=== PATIENT | female | born 1945 | race Caucasian/White ===

== ENCOUNTER 2020-04-25 11:48 | Observation (INO) ==
[2020-04-25] MEDS ORDERED: Ondansetron 4 MG/2 ML VIAL IVP PRN (14:04)
[2020-04-25] MEDS ORDERED: D5% in Water 1,000 ML IVC PRN (14:11)
[2020-04-25] MEDS ORDERED: *HR* Dextrose 50 % in Water (Vial) 50 ML VIAL IVP PRN (14:11)
[2020-04-25] MEDS ORDERED: Dextrose Gel 15 GM/37.5 ML TUBE PO PRN ×2 (14:11)
[2020-04-25 15:17] LABS: Lactate Dehydrogenase 164 Units/L (140-271)
[2020-04-25 15:36] LABS: Ferritin 344 ng/mL (10-120)
[2020-04-25 17:21] LABS: VBG HCO3 23 mEq/L (21-27); VBG PCO2 41 mmHg (41-51); VBG PH 7.35 pH Units (7.32-7.42); VBG PO2 140 mmHg (25-50)
[2020-04-25] MEDS: Insulin LISPRO 300 UNITS/3 ML VIAL SQ SCH ×2 (18:38→20:05)
[2020-04-25] MEDS: *HR* Heparin 5,000 UNIT/ML VIAL SQ SCH (21:44)
[2020-04-25] MEDS: Acetaminophen 325 MG TABLET PO PRN (23:47)
[2020-04-26 01:06] LABS: Hematocrit 32.9 % (35.3-44.9); Mean Corpuscular HGB Conc 30.4 g/dL (31.6-35.5); Mean Corpuscular Hemoglobin 27.5 pg (28.0-33.3); Mean Corpuscular Volume 90.4 fL (83.0-100.0); Platelet Count 371 K/mcL (140-400); Red Blood Count 3.64 M/mcL (3.82-4.97); Red Cell Distribution Width 12.8 % (11.5-14.5); White Blood Count 8.9 K/mcL (4.3-11.1)
[2020-04-26 01:22] LABS: Chol/HDL Ratio 6.2 (0-4.9)
[2020-04-26 01:23] LABS: Calcium 9.1 mg/dL (8.6-10.3); Potassium 4.2 mEq/L (3.5-5.1)
[2020-04-26] MEDS: *HR* Heparin 5,000 UNIT/ML VIAL SQ SCH ×3 (05:16→21:50)
[2020-04-26] MEDS: Insulin LISPRO 300 UNITS/3 ML VIAL SQ SCH ×4 (07:53→19:38)
[2020-04-26] MEDS: Aspirin 81 MG TAB.CHEW PO SCH (07:59)
[2020-04-26] MEDS ORDERED: Azithromycin 500 MG in 0.9 % Sodium Chloride 250 ML IVPB SCH (11:00)
[2020-04-26] MEDS ORDERED: cefTRIAXone 2,000 MG in 0.9 % Sodium Chloride Mini Bag 100 ML IVP SCH (12:00)
[2020-04-26 15:58] LABS: Estimated Average Glucose 203 mg/dl
[2020-04-27 01:17] LABS: Hematocrit 35.5 % (35.3-44.9); Hemoglobin 10.5 g/dL (11.5-15.4); Mean Corpuscular HGB Conc 29.6 g/dL (31.6-35.5); Mean Corpuscular Volume 91.3 fL (83.0-100.0); Mean Platelet Volume 8.9 fL (9.4-12.4); Platelet Count 334 K/mcL (140-400); Red Blood Count 3.89 M/mcL (3.82-4.97); Red Cell Distribution Width 13.1 % (11.5-14.5)
[2020-04-27 01:37] LABS: Calcium 9.2 mg/dL (8.6-10.3); Potassium 3.9 mEq/L (3.5-5.1)
[2020-04-27] MEDS: *HR* Heparin 5,000 UNIT/ML VIAL SQ SCH ×3 (05:06→21:41)
[2020-04-27] MEDS: Insulin LISPRO 300 UNITS/3 ML VIAL SQ SCH ×4 (07:37→21:41)
[2020-04-27] MEDS: Aspirin 81 MG TAB.CHEW PO SCH (08:51)
[2020-04-27] MEDS: lisinopriL 20 MG TABLET PO SCH (08:51)
[2020-04-27] MEDS: polyethylene glycoL 3350 17 GM POWD.PACK PO PRN (22:34)
[2020-04-28 02:35] LABS: Basophils % 0.5 %; Eosinophils # 0.6 K/mcL (0.0-0.6); Eosinophils % 7.2 %; Hematocrit 35.3 % (35.3-44.9); Hemoglobin 10.8 g/dL (11.5-15.4); Immature Granulocytes % 0.7 % (0-4); Lymphocytes % 23.9 %; Mean Corpuscular HGB Conc 30.6 g/dL (31.6-35.5); Mean Corpuscular Hemoglobin 26.9 pg (28.0-33.3); Mean Corpuscular Volume 87.8 fL (83.0-100.0); Mean Platelet Volume 9.2 fL (9.4-12.4); Monocytes # 0.6 K/mcL (0.0-1.3); Monocytes % 7.3 %; Platelet Count 344 K/mcL (140-400); Red Blood Count 4.02 M/mcL (3.82-4.97); Red Cell Distribution Width 12.8 % (11.5-14.5); Segmented Neutrophils % 60.4 %; White Blood Count 8.2 K/mcL (4.3-11.1)
[2020-04-28 02:58] LABS: Calcium 9.2 mg/dL (8.6-10.3); Potassium 3.9 mEq/L (3.5-5.1)
[2020-04-28] MEDS: *HR* Enoxaparin 40 MG/0.4 ML SYRINGE SQ SCH (05:14)
[2020-04-28] MEDS: lisinopriL 20 MG TABLET PO SCH (08:36)
[2020-04-28] MEDS: Aspirin 81 MG TAB.CHEW PO SCH (08:36)
[2020-04-28] MEDS: Insulin LISPRO 300 UNITS/3 ML VIAL SQ SCH ×4 (08:36→20:33)
[2020-04-28] MEDS: polyethylene glycoL 3350 17 GM POWD.PACK PO PRN (20:32)
[2020-04-29] MEDS: *HR* Enoxaparin 40 MG/0.4 ML SYRINGE SQ SCH (05:40)
[2020-04-29] MEDS: Aspirin 81 MG TAB.CHEW PO SCH (08:03)
[2020-04-29] MEDS: Insulin LISPRO 300 UNITS/3 ML VIAL SQ SCH ×4 (08:07→20:07)
[2020-04-29] MEDS: lisinopriL 20 MG TABLET PO SCH (08:11)
[2020-04-30] MEDS: *HR* Enoxaparin 40 MG/0.4 ML SYRINGE SQ SCH (05:08)
[2020-04-30] MEDS: lisinopriL 20 MG TABLET PO SCH (08:27)
[2020-04-30] MEDS: Aspirin 81 MG TAB.CHEW PO SCH (08:27)
[2020-04-30] MEDS: Insulin LISPRO 300 UNITS/3 ML VIAL SQ SCH ×4 (08:28→20:18)
[2020-04-30] MEDS ORDERED: Colchicine 0.6 MG TABLET PO ONE (09:44)
[2020-04-30] MEDS: Acetaminophen 325 MG TABLET PO PRN (10:09)
[2020-04-30] MEDS: Colchicine 0.6 MG TABLET PO SCH (12:24)
[2020-05-01] MEDS: *HR* Enoxaparin 40 MG/0.4 ML SYRINGE SQ SCH (05:15)
[2020-05-01] MEDS: Aspirin 81 MG TAB.CHEW PO SCH (08:55)
[2020-05-01] MEDS: Colchicine 0.6 MG TABLET PO SCH (08:55)
[2020-05-01] MEDS: lisinopriL 20 MG TABLET PO SCH (08:55)
[2020-05-01] MEDS: Insulin LISPRO 300 UNITS/3 ML VIAL SQ SCH ×4 (08:57→19:51)
[2020-05-01] MEDS: polyethylene glycoL 3350 17 GM POWD.PACK PO PRN (11:03)
[2020-05-02] MEDS: *HR* Enoxaparin 40 MG/0.4 ML SYRINGE SQ SCH (05:18)
[2020-05-02] MEDS: Colchicine 0.6 MG TABLET PO SCH (07:43)
[2020-05-02] MEDS: lisinopriL 20 MG TABLET PO SCH (07:43)
[2020-05-02] MEDS: Aspirin 81 MG TAB.CHEW PO SCH (07:43)
[2020-05-02] MEDS: Insulin LISPRO 300 UNITS/3 ML VIAL SQ SCH ×2 (07:44→12:28)
[2020-05-02 11:57] VITALS: BP 117/80
== END 2020-05-02 17:44 ==
LOC: 2NENU → SUATTDRO 13:04
PROVIDERS: ADMIT Student in an Organized Health Care Education/Training Program; ATTEND Internal Medicine

== ENCOUNTER 2020-05-31 01:24 | Inpatient (IN) ==
[2020-05-31] MEDS ORDERED: *HR* Heparin 5,000 UNIT/ML VIAL IVP ONE (03:23)
[2020-05-31] MEDS ORDERED: *HR* Heparin 5,000 UNIT/ML VIAL IVP PRN ×2 (03:23)
[2020-05-31] MEDS ORDERED: Naloxone 0.4 MG/ML INJ IVP PRN (04:01)
[2020-05-31] MEDS ORDERED: D5% in Water 1,000 ML IVC PRN (04:26)
[2020-05-31] MEDS ORDERED: *HR* Dextrose 50 % in Water (Vial) 50 ML VIAL IVP PRN (04:26)
[2020-05-31] MEDS ORDERED: Dextrose Gel 15 GM/37.5 ML TUBE PO PRN ×2 (04:26)
[2020-05-31] MEDS ORDERED: Perflutren Lipid Microsphere 1.3 ML in 0.9 % Sodium Chloride 8.7 ML IVP PRN (04:30)
[2020-05-31] MEDS: Heparin 25,000UNIT/250ML 1/2NS 25,000 UNIT/250 ML IV.SOLN IVC SCH (04:45)
[2020-05-31 05:01] LABS: Heparin anti-factor XA UFH 0.04 IU/mL (0.30-0.70)
[2020-05-31 05:51] LABS: Hematocrit 37.2 % (35.3-44.9); Hemoglobin 11.3 g/dL (11.5-15.4); Mean Corpuscular HGB Conc 30.4 g/dL (31.6-35.5); Mean Corpuscular Hemoglobin 27.8 pg (28.0-33.3); Mean Corpuscular Volume 91.4 fL (83.0-100.0); Mean Platelet Volume 9.8 fL (9.4-12.4); Platelet Count 264 K/mcL (140-400); Red Blood Count 4.07 M/mcL (3.82-4.97); Red Cell Distribution Width 15.3 % (11.5-14.5)
[2020-05-31 06:14] LABS: Albumin 3.7 g/dL (3.5-5.7); Albumin/Globulin Ratio 1.3 (1.1-2.2); Bilirubin,Direct 0.1 mg/dL (0.0-0.2); Bilirubin,Indirect 0.3 mg/dL (0.0-1.0); Bilirubin,Total 0.4 mg/dL (0.3-1.0); Globulin 2.8 g/dL (2.4-3.5); Total Protein 6.5 g/dL (6.4-8.9)
[2020-05-31 06:31] LABS: Calcium 9.7 mg/dL (8.6-10.3); Potassium 3.8 mEq/L (3.5-5.1); Troponin I 1.17 ng/mL (< 0.04)
[2020-05-31 07:23] LABS: Estimated Average Glucose 177 mg/dl; Hemoglobin A1C 7.8 %
[2020-05-31] MEDS: Insulin LISPRO 300 UNITS/3 ML VIAL SUBQ SCH ×4 (07:28→16:51)
[2020-05-31] MEDS: Aspirin Enteric Coated 81 MG Tablet PO SCH (08:36)
[2020-05-31] MEDS: gemfibroziL 600 MG TABLET PO SCH ×2 (08:36→18:33)
[2020-05-31] MEDS: lisinopriL 20 MG TABLET PO SCH (08:36)
[2020-05-31] MEDS: Cholecalciferol (D-3) 1,000 UNIT (25MCG) TABLET PO SCH (08:36)
[2020-05-31 09:15] LABS: Hepatitis B Surface Antigen Nonreactive (Nonreactive)
[2020-05-31 09:44] LABS: Hepatitis C Virus Antibody Nonreactive (Nonreactive)
[2020-05-31 09:45] LABS: Hepatitis B Core IgM Nonreactive (Nonreactive)
[2020-05-31 09:47] LABS: Hepatitis A Antibody IgM Nonreactive (Nonreactive)
[2020-05-31] MEDS: 0.9 % Sodium Chloride 1,000 ML IVC SCH (12:25)
[2020-05-31 15:21] LABS: Complement C3 174 mg/dL (87-200)
[2020-06-01] MEDS: polyethylene glycoL 3350 17 GM POWD.PACK PO SCH ×2 (00:31→08:38)
[2020-06-01] MEDS: *HR* Acetylcysteine 20% 600 MG/3 ML ORAL SYRINGE PO SCH ×2 (00:33→23:31)
[2020-06-01] MEDS: 0.9 % Sodium Chloride 1,000 ML IVC SCH ×2 (03:00→23:18)
[2020-06-01] MEDS: Heparin 25,000UNIT/250ML 1/2NS 25,000 UNIT/250 ML IV.SOLN IVC SCH (05:46)
[2020-06-01 05:58] LABS: Protein/Creatinine Ratio,Urine 3.93 mg/mg (0.00-0.20)
[2020-06-01 06:37] LABS: Basophils % 0.3 %; Eosinophils # 0.4 K/mcL (0.0-0.6); Eosinophils % 4.1 %; Hematocrit 34.2 % (35.3-44.9); Hemoglobin 10.1 g/dL (11.5-15.4); Immature Granulocytes % 0.6 % (0-4); Lymphocytes # 1.6 K/mcL (0.6-4.6); Lymphocytes % 18.4 %; Mean Corpuscular HGB Conc 29.5 g/dL (31.6-35.5); Mean Corpuscular Volume 91.4 fL (83.0-100.0); Mean Platelet Volume 10.3 fL (9.4-12.4); Monocytes # 0.4 K/mcL (0.0-1.3); Monocytes % 4.2 %; Neutrophils # 6.4 K/mcL (1.6-8.9); Platelet Count 273 K/mcL (140-400); Red Blood Count 3.74 M/mcL (3.82-4.97); Red Cell Distribution Width 15.5 % (11.5-14.5); Segmented Neutrophils % 72.4 %; White Blood Count 8.8 K/mcL (4.3-11.1)
[2020-06-01 06:40] LABS: INR 1.2; Prothrombin Time 13.9 Seconds (9.4-12.1)
[2020-06-01 06:55] LABS: Calcium 9.3 mg/dL (8.6-10.3); Magnesium 1.8 mg/dL (1.6-2.6); Phosphorous 4.5 mg/dL (2.7-4.5)
[2020-06-01 06:57] LABS: Albumin 3.4 g/dL (3.5-5.7); Albumin/Globulin Ratio 1.2 (1.1-2.2); Bilirubin,Direct 0.1 mg/dL (0.0-0.2); Bilirubin,Indirect 0.2 mg/dL (0.0-1.0); Bilirubin,Total 0.3 mg/dL (0.3-1.0); Globulin 2.8 g/dL (2.4-3.5); Total Protein 6.2 g/dL (6.4-8.9)
[2020-06-01 07:02] LABS: Iron 53 mcg/dL (50-170)
[2020-06-01 07:15] LABS: Ferritin 216 ng/mL (10-120)
[2020-06-01] MEDS: Insulin LISPRO 300 UNITS/3 ML VIAL SUBQ SCH ×3 (07:50→16:01)
[2020-06-01] MEDS: Aspirin Enteric Coated 81 MG Tablet PO SCH (08:38)
[2020-06-01] MEDS: Cholecalciferol (D-3) 1,000 UNIT (25MCG) TABLET PO SCH (08:39)
[2020-06-01] MEDS: gemfibroziL 600 MG TABLET PO SCH ×2 (08:39→16:28)
[2020-06-01 10:01] LABS: % Iron Saturation 25 % (15-50); Transferrin 154 mg/dL (203-362)
[2020-06-01] MEDS ORDERED: Isovue-370 500 ML BOTTLE IVP ONE (17:17)
[2020-06-02 05:44] LABS: Basophils % 0.4 %; Eosinophils # 0.3 K/mcL (0.0-0.6); Eosinophils % 3.6 %; Hematocrit 34.1 % (35.3-44.9); Hemoglobin 10.4 g/dL (11.5-15.4); Immature Granulocytes % 0.4 % (0-4); Lymphocytes # 1.2 K/mcL (0.6-4.6); Mean Corpuscular HGB Conc 30.5 g/dL (31.6-35.5); Mean Corpuscular Hemoglobin 28.4 pg (28.0-33.3); Mean Corpuscular Volume 93.2 fL (83.0-100.0); Mean Platelet Volume 9.9 fL (9.4-12.4); Monocytes # 0.4 K/mcL (0.0-1.3); Monocytes % 4.5 %; Neutrophils # 6.4 K/mcL (1.6-8.9); Platelet Count 281 K/mcL (140-400); Red Blood Count 3.66 M/mcL (3.82-4.97); Red Cell Distribution Width 15.8 % (11.5-14.5); Segmented Neutrophils % 77.1 %; White Blood Count 8.3 K/mcL (4.3-11.1)
[2020-06-02 06:00] LABS: Calcium 9.1 mg/dL (8.6-10.3); Magnesium 1.9 mg/dL (1.6-2.6); Phosphorous 4.9 mg/dL (2.7-4.5); Potassium 4.3 mEq/L (3.5-5.1)
[2020-06-02 06:01] LABS: Albumin 3.2 g/dL (3.5-5.7); Albumin/Globulin Ratio 1.2 (1.1-2.2); Bilirubin,Indirect 0.3 mg/dL (0.0-1.0); Bilirubin,Total 0.3 mg/dL (0.3-1.0); Globulin 2.7 g/dL (2.4-3.5); Total Protein 5.9 g/dL (6.4-8.9)
[2020-06-02] MEDS: Insulin LISPRO 300 UNITS/3 ML VIAL SUBQ SCH ×3 (08:02→16:31)
[2020-06-02] MEDS: polyethylene glycoL 3350 17 GM POWD.PACK PO SCH (08:12)
[2020-06-02] MEDS: gemfibroziL 600 MG TABLET PO SCH ×2 (08:13→16:31)
[2020-06-02] MEDS: Aspirin Enteric Coated 81 MG Tablet PO SCH (08:13)
[2020-06-02] MEDS: Cholecalciferol (D-3) 1,000 UNIT (25MCG) TABLET PO SCH (08:13)
[2020-06-02] MEDS: lisinopriL 20 MG TABLET PO SCH (08:14)
[2020-06-02 11:03] LABS: AFP Tumor Marker Non-Pregnant 1 ng/mL (0-9)
[2020-06-02 12:14] LABS: Lambda Qnt Free Light Chains 32.17 mg/L (5.71-26.30)
[2020-06-02] MEDS: 0.9 % Sodium Chloride 1,000 ML IVC SCH ×2 (13:17→16:47)
[2020-06-02 18:50] LABS: ANA IgG by ELISA NONE DETECTED (None Detected); Kappa Qnt Free Light Chains 92.05 mg/L (3.30-19.40)
[2020-06-02 18:51] LABS: Smooth Muscle Ab Titer IgG <1:20 (<1:20)
[2020-06-03 01:39] LABS: Basophils % 0.3 %; Eosinophils # 0.3 K/mcL (0.0-0.6); Eosinophils % 3.4 %; Hematocrit 35.3 % (35.3-44.9); Hemoglobin 10.6 g/dL (11.5-15.4); Immature Granulocytes % 0.5 % (0-4); Lymphocytes # 1.2 K/mcL (0.6-4.6); Lymphocytes % 12.7 %; Mean Corpuscular Hemoglobin 28.3 pg (28.0-33.3); Mean Corpuscular Volume 94.1 fL (83.0-100.0); Mean Platelet Volume 9.7 fL (9.4-12.4); Monocytes # 0.4 K/mcL (0.0-1.3); Monocytes % 3.8 %; Neutrophils # 7.8 K/mcL (1.6-8.9); Platelet Count 291 K/mcL (140-400); Red Blood Count 3.75 M/mcL (3.82-4.97); Red Cell Distribution Width 15.8 % (11.5-14.5); Segmented Neutrophils % 79.3 %; White Blood Count 9.8 K/mcL (4.3-11.1)
[2020-06-03 01:58] LABS: Albumin 3.2 g/dL (3.5-5.7); Albumin/Globulin Ratio 1.1 (1.1-2.2); Bilirubin,Direct 0.2 mg/dL (0.0-0.2); Bilirubin,Indirect 0.1 mg/dL (0.0-1.0); Bilirubin,Total 0.3 mg/dL (0.3-1.0); Globulin 2.9 g/dL (2.4-3.5); Total Protein 6.1 g/dL (6.4-8.9)
[2020-06-03 02:00] LABS: Potassium 4.5 mEq/L (3.5-5.1)
[2020-06-03] MEDS: 0.9 % Sodium Chloride 1,000 ML IVC SCH ×2 (03:06→16:53)
[2020-06-03 07:45] LABS: F-Actin (sm muscle) Ab IgG 4 Units (0-19)
[2020-06-03] MEDS: Insulin LISPRO 300 UNITS/3 ML VIAL SUBQ SCH ×3 (07:46→16:46)
[2020-06-03] MEDS: Cholecalciferol (D-3) 1,000 UNIT (25MCG) TABLET PO SCH (07:56)
[2020-06-03] MEDS: Aspirin Enteric Coated 81 MG Tablet PO SCH (07:56)
[2020-06-03] MEDS: polyethylene glycoL 3350 17 GM POWD.PACK PO SCH (07:56)
[2020-06-04 02:08] LABS: Basophils % 0.2 %; Eosinophils # 0.4 K/mcL (0.0-0.6); Eosinophils % 3.4 %; Hematocrit 34.9 % (35.3-44.9); Hemoglobin 10.6 g/dL (11.5-15.4); Immature Granulocytes % 0.7 % (0-4); Lymphocytes # 1.4 K/mcL (0.6-4.6); Lymphocytes % 12.9 %; Mean Corpuscular HGB Conc 30.4 g/dL (31.6-35.5); Mean Corpuscular Hemoglobin 27.7 pg (28.0-33.3); Mean Corpuscular Volume 91.1 fL (83.0-100.0); Mean Platelet Volume 9.4 fL (9.4-12.4); Monocytes # 0.3 K/mcL (0.0-1.3); Monocytes % 3.1 %; Neutrophils # 8.6 K/mcL (1.6-8.9); Platelet Count 328 K/mcL (140-400); Red Blood Count 3.83 M/mcL (3.82-4.97); Red Cell Distribution Width 15.9 % (11.5-14.5); Segmented Neutrophils % 79.7 %; White Blood Count 10.7 K/mcL (4.3-11.1)
[2020-06-04 02:29] LABS: Bilirubin,Total 0.3 mg/dL (0.3-1.0); Calcium 8.9 mg/dL (8.6-10.3); Globulin 2.9 g/dL (2.4-3.5); Potassium 4.8 mEq/L (3.5-5.1); Total Protein 5.9 g/dL (6.4-8.9)
[2020-06-04 02:30] LABS: Phosphorous 5.5 mg/dL (2.7-4.5)
[2020-06-04] MEDS: 0.9 % Sodium Chloride 1,000 ML IVC SCH (04:33)
[2020-06-04] MEDS: Insulin LISPRO 300 UNITS/3 ML VIAL SUBQ SCH ×3 (09:50→16:43)
[2020-06-04] MEDS: Cholecalciferol (D-3) 1,000 UNIT (25MCG) TABLET PO SCH (09:52)
[2020-06-04] MEDS: Aspirin Enteric Coated 81 MG Tablet PO SCH (09:52)
[2020-06-04] MEDS: polyethylene glycoL 3350 17 GM POWD.PACK PO SCH (09:52)
[2020-06-04 10:28] LABS: Serine Protease-3 Antibody 0 AU/mL (0-19)
[2020-06-04 16:43] LABS: INR 1.2; Prothrombin Time 14.3 Seconds (9.4-12.1)
[2020-06-04] MEDS: Ondansetron ODT 4 MG TAB.RAPDIS SL PRN (21:48)
[2020-06-05 05:03] LABS: Basophils % 0.4 %; Eosinophils # 0.4 K/mcL (0.0-0.6); Eosinophils % 3.5 %; Hematocrit 36.4 % (35.3-44.9); Hemoglobin 11.3 g/dL (11.5-15.4); Immature Granulocytes % 1.3 % (0-4); Lymphocytes # 1.5 K/mcL (0.6-4.6); Lymphocytes % 14.9 %; Mean Corpuscular Hemoglobin 28.1 pg (28.0-33.3); Mean Corpuscular Volume 90.5 fL (83.0-100.0); Mean Platelet Volume 9.6 fL (9.4-12.4); Monocytes # 0.4 K/mcL (0.0-1.3); Monocytes % 3.6 %; Neutrophils # 7.9 K/mcL (1.6-8.9); Platelet Count 360 K/mcL (140-400); Red Blood Count 4.02 M/mcL (3.82-4.97); Red Cell Distribution Width 15.9 % (11.5-14.5); Segmented Neutrophils % 76.3 %; White Blood Count 10.3 K/mcL (4.3-11.1)
[2020-06-05 05:21] LABS: Albumin 2.9 g/dL (3.5-5.7); Bilirubin,Total 0.3 mg/dL (0.3-1.0); Globulin 2.8 g/dL (2.4-3.5); Potassium 4.8 mEq/L (3.5-5.1); Total Protein 5.7 g/dL (6.4-8.9)
[2020-06-05] MEDS: Insulin LISPRO 300 UNITS/3 ML VIAL SUBQ SCH ×3 (08:25→17:21)
[2020-06-05] MEDS: Aspirin Enteric Coated 81 MG Tablet PO SCH (08:27)
[2020-06-05] MEDS: Cholecalciferol (D-3) 1,000 UNIT (25MCG) TABLET PO SCH (08:27)
[2020-06-05] MEDS: polyethylene glycoL 3350 17 GM POWD.PACK PO SCH (08:28)
[2020-06-05] MEDS ORDERED: Bisacodyl 10 MG RECTAL SUPPOSITORY RC ONE (12:14)
[2020-06-05 15:16] LABS: CK-BB (CK isoenzymes) 0 % (0-0); CK-MB (CK isoenzymes) 0 % (0-4); CK-MM (CK-isoenzymes) 100 % (96-100)
[2020-06-05 15:17] LABS: CK Total (Ck Isoenzymes) 39006 U/L (20-180)
[2020-06-06 03:03] LABS: Basophils # 0.1 K/mcL (0.0-0.2); Basophils % 0.5 %; Eosinophils # 0.4 K/mcL (0.0-0.6); Eosinophils % 3.6 %; Immature Granulocytes % 1.9 % (0-4); Lymphocytes # 1.5 K/mcL (0.6-4.6); Lymphocytes % 15.4 %; Mean Corpuscular HGB Conc 30.6 g/dL (31.6-35.5); Mean Corpuscular Hemoglobin 27.7 pg (28.0-33.3); Mean Corpuscular Volume 90.7 fL (83.0-100.0); Mean Platelet Volume 9.2 fL (9.4-12.4); Monocytes # 0.4 K/mcL (0.0-1.3); Monocytes % 4.3 %; Neutrophils # 7.2 K/mcL (1.6-8.9); Platelet Count 377 K/mcL (140-400); Red Blood Count 3.97 M/mcL (3.82-4.97); Red Cell Distribution Width 15.9 % (11.5-14.5); Segmented Neutrophils % 74.3 %; White Blood Count 9.6 K/mcL (4.3-11.1)
[2020-06-06 03:23] LABS: Albumin 2.9 g/dL (3.5-5.7); Bilirubin,Total 0.4 mg/dL (0.3-1.0); Calcium 9.1 mg/dL (8.6-10.3); Globulin 2.8 g/dL (2.4-3.5); Potassium 4.8 mEq/L (3.5-5.1); Total Protein 5.7 g/dL (6.4-8.9)
[2020-06-06] MEDS: polyethylene glycoL 3350 17 GM POWD.PACK PO SCH (07:52)
[2020-06-06] MEDS: Insulin LISPRO 300 UNITS/3 ML VIAL SUBQ SCH ×3 (07:53→18:42)
[2020-06-06] MEDS: Cholecalciferol (D-3) 1,000 UNIT (25MCG) TABLET PO SCH (07:53)
[2020-06-06] MEDS: Aspirin Enteric Coated 81 MG Tablet PO SCH (07:53)
[2020-06-06 10:15] LABS: Tissue Transglutaminase IgA <2 U/mL (0-3); Tissue Transglutaminase IgG <2 U/mL (0-5)
[2020-06-06] MEDS: Ondansetron ODT 4 MG TAB.RAPDIS SL PRN (16:28)
[2020-06-06] MEDS ORDERED: 0.9 % Sodium Chloride 500 ML IVC ONE (22:50)
[2020-06-06 23:59] LABS: Troponin I 0.08 ng/mL (< 0.04)
[2020-06-07 05:33] LABS: Basophils # 0.1 K/mcL (0.0-0.2); Basophils % 0.8 %; Eosinophils # 0.3 K/mcL (0.0-0.6); Eosinophils % 2.8 %; Hematocrit 36.4 % (35.3-44.9); Hemoglobin 11.1 g/dL (11.5-15.4); Immature Granulocytes % 2.4 % (0-4); Lymphocytes % 21.6 %; Mean Corpuscular HGB Conc 30.5 g/dL (31.6-35.5); Mean Corpuscular Hemoglobin 28.2 pg (28.0-33.3); Mean Corpuscular Volume 92.4 fL (83.0-100.0); Mean Platelet Volume 9.4 fL (9.4-12.4); Monocytes # 0.4 K/mcL (0.0-1.3); Monocytes % 4.5 %; Neutrophils # 6.3 K/mcL (1.6-8.9); Platelet Count 414 K/mcL (140-400); Red Blood Count 3.94 M/mcL (3.82-4.97); Red Cell Distribution Width 16.1 % (11.5-14.5); Segmented Neutrophils % 67.9 %; White Blood Count 9.2 K/mcL (4.3-11.1)
[2020-06-07 05:49] LABS: Albumin 2.9 g/dL (3.5-5.7); Albumin/Globulin Ratio 1.1 (1.1-2.2); Bilirubin,Total 0.4 mg/dL (0.3-1.0); Calcium 9.3 mg/dL (8.6-10.3); Globulin 2.6 g/dL (2.4-3.5); Potassium 4.7 mEq/L (3.5-5.1); Total Protein 5.5 g/dL (6.4-8.9)
[2020-06-07] MEDS: Insulin LISPRO 300 UNITS/3 ML VIAL SUBQ SCH ×3 (07:59→17:02)
[2020-06-07] MEDS: Aspirin Enteric Coated 81 MG Tablet PO SCH (07:59)
[2020-06-07] MEDS: Cholecalciferol (D-3) 1,000 UNIT (25MCG) TABLET PO SCH (07:59)
[2020-06-07] MEDS: polyethylene glycoL 3350 17 GM POWD.PACK PO SCH (07:59)
[2020-06-07] MEDS ORDERED: Aspirin Enteric Coated 325 MG Tablet PO ONE (13:19)
[2020-06-07] MEDS ORDERED: Aspirin 81 MG TAB.CHEW PO ONE (13:30)
[2020-06-08 01:34] LABS: Basophils # 0.1 K/mcL (0.0-0.2); Basophils % 0.6 %; Eosinophils # 0.4 K/mcL (0.0-0.6); Eosinophils % 5.2 %; Hematocrit 36.7 % (35.3-44.9); Hemoglobin 10.9 g/dL (11.5-15.4); Immature Granulocytes % 3.1 % (0-4); Lymphocytes # 1.8 K/mcL (0.6-4.6); Lymphocytes % 23.4 %; Mean Corpuscular HGB Conc 29.7 g/dL (31.6-35.5); Mean Corpuscular Hemoglobin 27.3 pg (28.0-33.3); Mean Corpuscular Volume 91.8 fL (83.0-100.0); Mean Platelet Volume 9.4 fL (9.4-12.4); Monocytes # 0.5 K/mcL (0.0-1.3); Monocytes % 5.7 %; Neutrophils # 4.9 K/mcL (1.6-8.9); Platelet Count 395 K/mcL (140-400); White Blood Count 7.9 K/mcL (4.3-11.1)
[2020-06-08 01:58] LABS: Albumin 2.9 g/dL (3.5-5.7); Albumin/Globulin Ratio 1.1 (1.1-2.2); Bilirubin,Total 0.4 mg/dL (0.3-1.0); Calcium 9.2 mg/dL (8.6-10.3); Globulin 2.6 g/dL (2.4-3.5); Potassium 4.2 mEq/L (3.5-5.1); Total Protein 5.5 g/dL (6.4-8.9)
[2020-06-08] MEDS: Aspirin Enteric Coated 81 MG Tablet PO SCH (07:54)
[2020-06-08] MEDS: Cholecalciferol (D-3) 1,000 UNIT (25MCG) TABLET PO SCH (07:54)
[2020-06-08] MEDS: polyethylene glycoL 3350 17 GM POWD.PACK PO SCH (07:54)
[2020-06-08] MEDS: Insulin LISPRO 300 UNITS/3 ML VIAL SUBQ SCH ×3 (07:58→16:51)
[2020-06-08] MEDS ORDERED: Acetaminophen 325 MG TABLET PO PRN (14:51)
[2020-06-08 16:04] VITALS: BP 98/59
== END 2020-06-08 17:42 | DRG 682 ==
LOC: 3BNU → SUATTDRO 03:05 → 2ANU 06-02 14:26 → SUATTDRO 06-02 16:52
PROVIDERS: ADMIT Internal Medicine; ATTEND Internal Medicine

== ENCOUNTER 2020-06-22 06:22 | Observation (INO) ==
[2020-06-22] MEDS ORDERED: *HR* Heparin 5,000 UNIT/ML VIAL IVP ONE (09:01)
[2020-06-22] MEDS ORDERED: *HR* Heparin 5,000 UNIT/ML VIAL IVP PRN ×2 (09:01)
[2020-06-22] MEDS ORDERED: Heparin 25,000UNIT/250ML 1/2NS 25,000 UNIT/250 ML IV.SOLN IVC SCH (09:15)
[2020-06-22] MEDS ORDERED: Naloxone 0.4 MG/ML INJ IVP PRN (09:27)
[2020-06-22] MEDS ORDERED: Ondansetron 4 MG/2 ML VIAL IVP PRN (09:27)
[2020-06-22] MEDS ORDERED: Acetaminophen 325 MG TABLET PO PRN (09:27)
[2020-06-22] MEDS ORDERED: *HR* Dextrose 50 % in Water (Vial) 50 ML VIAL IVP PRN (09:28)
[2020-06-22] MEDS ORDERED: Dextrose Gel 15 GM/37.5 ML TUBE PO PRN ×2 (09:28)
[2020-06-22] MEDS ORDERED: D5% in Water 1,000 ML IVC PRN (09:28)
[2020-06-22 09:48] LABS: Hematocrit 34.7 % (35.3-44.9); Hemoglobin 10.6 g/dL (11.5-15.4); Mean Corpuscular HGB Conc 30.5 g/dL (31.6-35.5); Mean Corpuscular Hemoglobin 28.3 pg (28.0-33.3); Mean Corpuscular Volume 92.5 fL (83.0-100.0); Mean Platelet Volume 9.4 fL (9.4-12.4); Platelet Count 207 K/mcL (140-400); Red Blood Count 3.75 M/mcL (3.82-4.97); Red Cell Distribution Width 15.5 % (11.5-14.5); White Blood Count 7.3 K/mcL (4.3-11.1)
[2020-06-22 09:50] LABS: Heparin anti-factor XA UFH < 0.04 IU/mL (0.30-0.70)
[2020-06-22 09:51] LABS: INR 1.2; Prothrombin Time 13.6 Seconds (9.4-12.1)
[2020-06-22] MEDS: lisinopriL 10 MG TABLET PO SCH (09:59)
[2020-06-22] MEDS: polyethylene glycoL 3350 17 GM POWD.PACK PO SCH (09:59)
[2020-06-22] MEDS: Aspirin Enteric Coated 81 MG Tablet PO SCH (09:59)
[2020-06-22] MEDS ORDERED: Perflutren Lipid Microsphere 1.3 ML in 0.9 % Sodium Chloride 8.7 ML IVP PRN (11:00)
[2020-06-22] MEDS: Insulin LISPRO 300 UNITS/3 ML VIAL SUBQ SCH ×2 (11:46→16:49)
[2020-06-22] MEDS: Apixaban 5 MG TABLET PO SCH ×2 (11:59→20:49)
[2020-06-22 21:57] LABS: Bilirubin,Urine Negative (Negative); Blood,Urine Trace (Negative); Clarity,Urine Turbid (Clear); Color,Urine Yellow (Yellow); Glucose,Urine (UA) Normal (Normal); Ketones,Urine Negative (Negative); Leukocyte Esterase,Urine Large (Negative); Nitrite,Urine Positive (Negative); Protein,Urine Trace mg/dL (Neg-Trace); Specific Gravity,Urine 1.016 (1.010-1.025); Urobilinogen,Urine Normal (Normal)
[2020-06-23 03:30] LABS: Hematocrit 32.1 % (35.3-44.9); Hemoglobin 9.6 g/dL (11.5-15.4); Mean Corpuscular HGB Conc 29.9 g/dL (31.6-35.5); Mean Corpuscular Hemoglobin 27.4 pg (28.0-33.3); Mean Corpuscular Volume 91.7 fL (83.0-100.0); Mean Platelet Volume 9.2 fL (9.4-12.4); Platelet Count 180 K/mcL (140-400); Red Cell Distribution Width 15.3 % (11.5-14.5); White Blood Count 6.3 K/mcL (4.3-11.1)
[2020-06-23 03:50] LABS: Calcium 8.3 mg/dL (8.6-10.3); Magnesium 1.4 mg/dL (1.6-2.6)
[2020-06-23 03:55] LABS: Troponin I 0.13 ng/mL (< 0.04)
[2020-06-23] MEDS: Apixaban 5 MG TABLET PO SCH ×2 (07:31→20:08)
[2020-06-23] MEDS: Aspirin Enteric Coated 81 MG Tablet PO SCH (07:31)
[2020-06-23] MEDS: polyethylene glycoL 3350 17 GM POWD.PACK PO SCH (07:32)
[2020-06-23] MEDS: Insulin LISPRO 300 UNITS/3 ML VIAL SUBQ SCH ×3 (07:32→17:02)
[2020-06-23] MEDS: lisinopriL 10 MG TABLET PO SCH (07:32)
[2020-06-24 07:03] LABS: Hematocrit 34.1 % (35.3-44.9); Hemoglobin 10.3 g/dL (11.5-15.4); Mean Corpuscular HGB Conc 30.2 g/dL (31.6-35.5); Mean Corpuscular Hemoglobin 27.8 pg (28.0-33.3); Mean Corpuscular Volume 91.9 fL (83.0-100.0); Mean Platelet Volume 9.3 fL (9.4-12.4); Platelet Count 206 K/mcL (140-400); Red Blood Count 3.71 M/mcL (3.82-4.97); Red Cell Distribution Width 15.3 % (11.5-14.5); White Blood Count 7.2 K/mcL (4.3-11.1)
[2020-06-24 07:54] LABS: Calcium 9.1 mg/dL (8.6-10.3); Potassium 3.9 mEq/L (3.5-5.1)
[2020-06-24] MEDS: Insulin LISPRO 300 UNITS/3 ML VIAL SUBQ SCH ×2 (07:59→11:04)
[2020-06-24 10:49] VITALS: BP 130/77
[2020-06-24] MEDS: polyethylene glycoL 3350 17 GM POWD.PACK PO SCH (10:51)
[2020-06-24] MEDS: Apixaban 5 MG TABLET PO SCH (10:51)
[2020-06-24] MEDS: Aspirin Enteric Coated 81 MG Tablet PO SCH (10:51)
[2020-06-24] MEDS: lisinopriL 10 MG TABLET PO SCH (10:52)
[2020-06-25 15:58] LABS: Alpha 2 Globulin (PEP) 1.12 g/dL (0.48-1.05); Beta Globulin (PEP) 0.59 g/dL (0.48-1.10)
[2020-06-25 20:20] LABS: IFE Reflexed NOT DONE
[2020-06-29] MEDS ORDERED: Apixaban 5 MG TABLET PO SCH (09:00)
== END 2020-06-24 15:35 | disposition home health service (06) ==
LOC: CDU → SUATTDRO 09:29 → CDU 06-23 14:45
PROVIDERS: ADMIT Internal Medicine; ATTEND Internal Medicine

== ENCOUNTER 2021-11-22 13:45 | Inpatient (IN) ==
[2021-11-22] MEDS ORDERED: Ondansetron 4 MG/2 ML VIAL IVP PRN (17:14)
[2021-11-22] MEDS ORDERED: *HR* HYDROcodone/Acet 5/325 mg TABLET PO PRN (17:14)
[2021-11-22] MEDS ORDERED: Naloxone 0.4 MG/ML INJ IVP PRN (17:14)
[2021-11-22] MEDS ORDERED: Acetaminophen 325 MG TABLET PO PRN (17:14)
[2021-11-22] MEDS: *HR* OxyCODONE Immed Rel 5 MG TABLET PO PRN (18:01)
[2021-11-22] MEDS ORDERED: Dextrose Gel 15 GM/37.5 ML TUBE PO PRN ×2 (18:40)
[2021-11-22] MEDS ORDERED: D5% in Water 1,000 ML IVC PRN (18:40)
[2021-11-22] MEDS ORDERED: *HR* Dextrose 50 % in Water (Syg) 50 ML SYRINGE IVP PRN (18:40)
[2021-11-22] MEDS: Insulin LISPRO 300 UNITS/3 ML VIAL SUBQ SCH ×2 (21:13→21:14)
[2021-11-23] MEDS: *HR* Heparin 5,000 UNIT/ML VIAL SQ SCH ×2 (06:34→17:59)
[2021-11-23 07:28] LABS: Basophils % 0.5 %; Eosinophils # 0.4 K/mcL (0.0-0.6); Eosinophils % 4.8 %; Hematocrit 30.8 % (35.3-44.9); Immature Granulocytes % 0.4 % (0-4); Lymphocytes % 40.9 %; Mean Corpuscular HGB Conc 29.2 g/dL (31.6-35.5); Mean Corpuscular Hemoglobin 25.2 pg (28.0-33.3); Mean Corpuscular Volume 86.3 fL (83.0-100.0); Mean Platelet Volume 8.5 fL (9.4-12.4); Monocytes # 0.4 K/mcL (0.0-1.3); Neutrophils # 3.6 K/mcL (1.6-8.9); Platelet Count 377 K/mcL (140-400); Red Blood Count 3.57 M/mcL (3.82-4.97); Red Cell Distribution Width 16.2 % (11.5-14.5); Segmented Neutrophils % 48.4 %; White Blood Count 7.3 K/mcL (4.3-11.1)
[2021-11-23 07:36] LABS: Calcium 8.9 mg/dL (8.6-10.3); Magnesium 1.7 mg/dL (1.6-2.6); Potassium 3.7 mEq/L (3.5-5.1)
[2021-11-23] MEDS: Insulin LISPRO 300 UNITS/3 ML VIAL SUBQ SCH ×4 (07:59→21:06)
[2021-11-23 09:03] LABS: Estimated Average Glucose 126 mg/dl
[2021-11-23 09:45] LABS: Thyroid Stimulating Hormone 3.763 mcIU/mL (0.340-5.600)
[2021-11-23] MEDS: *HR* OxyCODONE Immed Rel 5 MG TABLET PO PRN (10:16)
[2021-11-23] MEDS: Gabapentin 100 MG CAPSULE PO SCH ×2 (16:23→21:07)
[2021-11-23] MEDS: methocarbamoL 500 MG TABLET PO SCH ×2 (16:23→21:08)
[2021-11-23] MEDS ORDERED: Vancomycin 1,500 MG/265 ML IV.SOLN IVPB SCH (17:00)
[2021-11-23] MEDS: MetroNIDAZOLE 500 MG/100 ML 500 MG/100 ML BAG IVPB SCH ×2 (17:46→23:33)
[2021-11-24 01:41] LABS: Basophils % 0.3 %; Eosinophils # 0.3 K/mcL (0.0-0.6); Eosinophils % 3.3 %; Hematocrit 29.3 % (35.3-44.9); Hemoglobin 8.6 g/dL (11.5-15.4); Immature Granulocytes % 0.3 % (0-4); Lymphocytes # 3.4 K/mcL (0.6-4.6); Mean Corpuscular HGB Conc 29.4 g/dL (31.6-35.5); Mean Corpuscular Hemoglobin 25.2 pg (28.0-33.3); Mean Corpuscular Volume 85.9 fL (83.0-100.0); Mean Platelet Volume 8.6 fL (9.4-12.4); Monocytes # 0.4 K/mcL (0.0-1.3); Monocytes % 4.9 %; Neutrophils # 4.7 K/mcL (1.6-8.9); Platelet Count 373 K/mcL (140-400); Red Blood Count 3.41 M/mcL (3.82-4.97); Segmented Neutrophils % 53.2 %; White Blood Count 8.8 K/mcL (4.3-11.1)
[2021-11-24 02:04] LABS: Calcium 8.7 mg/dL (8.6-10.3); Magnesium 1.5 mg/dL (1.6-2.6)
[2021-11-24 02:56] LABS: Folate 8.3 ng/mL (3.0-16.0)
[2021-11-24] MEDS: *HR* Heparin 5,000 UNIT/ML VIAL SQ SCH ×2 (05:58→16:04)
[2021-11-24] MEDS: Gabapentin 100 MG CAPSULE PO SCH ×3 (08:00→20:42)
[2021-11-24] MEDS: Isosorbide MONOnitrate (24 HR) 30 MG TAB.ER.24H PO SCH (08:00)
[2021-11-24] MEDS: Aspirin 81 MG TAB.CHEW PO SCH (08:00)
[2021-11-24] MEDS: MetroNIDAZOLE 500 MG/100 ML 500 MG/100 ML BAG IVPB SCH (08:01)
[2021-11-24] MEDS: Cyanocobalamin (B-12) 1,000 MCG/ML VIAL SQ SCH (08:03)
[2021-11-24] MEDS: methocarbamoL 500 MG TABLET PO SCH ×3 (08:04→20:43)
[2021-11-24] MEDS: Insulin LISPRO 300 UNITS/3 ML VIAL SUBQ SCH ×4 (08:21→20:45)
[2021-11-24] MEDS: *HR* OxyCODONE Immed Rel 5 MG TABLET PO PRN (09:57)
[2021-11-24] MEDS: Iron Sucrose Complex 250 MG in 0.9 % Sodium Chloride 250 ML IVPB SCH (11:28)
[2021-11-24] MEDS ORDERED: levoFLOXacin 750 MG/150 ML 750 MG/150 ML BAG IVPB SCH (17:00)
[2021-11-24] MEDS: *HR* Rivaroxaban 10 MG TABLET PO SCH (17:38)
[2021-11-25] MEDS: Insulin LISPRO 300 UNITS/3 ML VIAL SUBQ SCH ×4 (08:19→20:49)
[2021-11-25] MEDS: Iron Sucrose Complex 250 MG in 0.9 % Sodium Chloride 250 ML IVPB SCH (10:12)
[2021-11-25] MEDS: Isosorbide MONOnitrate (24 HR) 30 MG TAB.ER.24H PO SCH (10:12)
[2021-11-25] MEDS: Cyanocobalamin (B-12) 1,000 MCG/ML VIAL SQ SCH (10:13)
[2021-11-25] MEDS: Gabapentin 100 MG CAPSULE PO SCH ×3 (10:13→20:48)
[2021-11-25] MEDS: Aspirin 81 MG TAB.CHEW PO SCH (10:13)
[2021-11-25] MEDS: methocarbamoL 500 MG TABLET PO SCH ×3 (10:44→20:48)
[2021-11-25 13:25] LABS: Basophils % 0.4 %; Eosinophils # 0.5 K/mcL (0.0-0.6); Eosinophils % 5.4 %; Hematocrit 30.6 % (35.3-44.9); Hemoglobin 8.9 g/dL (11.5-15.4); Immature Granulocytes % 0.4 % (0-4); Lymphocytes # 3.5 K/mcL (0.6-4.6); Lymphocytes % 36.8 %; Mean Corpuscular HGB Conc 29.1 g/dL (31.6-35.5); Mean Corpuscular Hemoglobin 25.1 pg (28.0-33.3); Mean Corpuscular Volume 86.2 fL (83.0-100.0); Mean Platelet Volume 8.7 fL (9.4-12.4); Monocytes # 0.4 K/mcL (0.0-1.3); Monocytes % 4.6 %; Platelet Count 396 K/mcL (140-400); Red Blood Count 3.55 M/mcL (3.82-4.97); Segmented Neutrophils % 52.4 %; White Blood Count 9.5 K/mcL (4.3-11.1)
[2021-11-25 13:42] LABS: Calcium 8.5 mg/dL (8.6-10.3); Magnesium 1.7 mg/dL (1.6-2.6)
[2021-11-25] MEDS: *HR* Rivaroxaban 10 MG TABLET PO SCH (17:37)
[2021-11-25] MEDS: *HR* OxyCODONE Immed Rel 5 MG TABLET PO PRN (20:54)
[2021-11-26 01:21] LABS: Monocytes % 4.8 %
[2021-11-26 01:22] LABS: Basophils % 0.3 %; Eosinophils # 0.4 K/mcL (0.0-0.6); Eosinophils % 4.4 %; Hematocrit 29.1 % (35.3-44.9); Hemoglobin 8.5 g/dL (11.5-15.4); Immature Granulocytes % 0.4 % (0-4); Lymphocytes # 3.6 K/mcL (0.6-4.6); Lymphocytes % 35.6 %; Mean Corpuscular HGB Conc 29.2 g/dL (31.6-35.5); Mean Corpuscular Hemoglobin 25.1 pg (28.0-33.3); Mean Corpuscular Volume 86.1 fL (83.0-100.0); Mean Platelet Volume 8.8 fL (9.4-12.4); Monocytes # 0.5 K/mcL (0.0-1.3); Neutrophils # 5.5 K/mcL (1.6-8.9); Nucleated Red Blood Cells 0.2 /100 WBC (0); Platelet Count 391 K/mcL (140-400); Red Blood Count 3.38 M/mcL (3.82-4.97); Red Cell Distribution Width 16.1 % (11.5-14.5); Segmented Neutrophils % 54.5 %; White Blood Count 10.1 K/mcL (4.3-11.1)
[2021-11-26 01:40] LABS: Calcium 8.5 mg/dL (8.6-10.3); Magnesium 1.6 mg/dL (1.6-2.6); Potassium 3.9 mEq/L (3.5-5.1)
[2021-11-26] MEDS: Isosorbide MONOnitrate (24 HR) 30 MG TAB.ER.24H PO SCH (08:13)
[2021-11-26] MEDS: Aspirin 81 MG TAB.CHEW PO SCH (08:13)
[2021-11-26] MEDS: Gabapentin 100 MG CAPSULE PO SCH ×3 (08:13→22:15)
[2021-11-26] MEDS: Insulin LISPRO 300 UNITS/3 ML VIAL SUBQ SCH ×4 (08:13→22:16)
[2021-11-26] MEDS: methocarbamoL 500 MG TABLET PO SCH ×3 (08:14→22:15)
[2021-11-26] MEDS: *HR* Rivaroxaban 10 MG TABLET PO SCH (17:28)
[2021-11-26] MEDS: *HR* OxyCODONE Immed Rel 5 MG TABLET PO PRN (22:16)
[2021-11-27 06:35] LABS: Basophils % 0.3 %; Eosinophils # 0.4 K/mcL (0.0-0.6); Eosinophils % 3.5 %; Hematocrit 29.7 % (35.3-44.9); Hemoglobin 8.8 g/dL (11.5-15.4); Immature Granulocytes % 0.5 % (0-4); Lymphocytes # 3.7 K/mcL (0.6-4.6); Lymphocytes % 37.4 %; Mean Corpuscular HGB Conc 29.6 g/dL (31.6-35.5); Mean Corpuscular Hemoglobin 25.2 pg (28.0-33.3); Mean Corpuscular Volume 85.1 fL (83.0-100.0); Mean Platelet Volume 8.5 fL (9.4-12.4); Monocytes # 0.6 K/mcL (0.0-1.3); Monocytes % 5.5 %; Neutrophils # 5.2 K/mcL (1.6-8.9); Nucleated Red Blood Cells 0.2 /100 WBC (0); Platelet Count 369 K/mcL (140-400); Red Blood Count 3.49 M/mcL (3.82-4.97); Red Cell Distribution Width 16.5 % (11.5-14.5); Segmented Neutrophils % 52.8 %; White Blood Count 9.9 K/mcL (4.3-11.1)
[2021-11-27 07:05] LABS: Calcium 8.8 mg/dL (8.6-10.3); Potassium 3.8 mEq/L (3.5-5.1)
[2021-11-27] MEDS: Insulin LISPRO 300 UNITS/3 ML VIAL SUBQ SCH ×4 (08:12→20:39)
[2021-11-27] MEDS: 0.9 % Sodium Chloride 1,000 ML IVC SCH ×2 (08:47→20:34)
[2021-11-27] MEDS: Isosorbide MONOnitrate (24 HR) 30 MG TAB.ER.24H PO SCH (08:47)
[2021-11-27] MEDS: Gabapentin 100 MG CAPSULE PO SCH ×3 (08:48→20:33)
[2021-11-27] MEDS: Aspirin 81 MG TAB.CHEW PO SCH (08:48)
[2021-11-27] MEDS: methocarbamoL 500 MG TABLET PO SCH ×3 (08:48→20:33)
[2021-11-27] MEDS: *HR* OxyCODONE Immed Rel 5 MG TABLET PO PRN (10:13)
[2021-11-27] MEDS: *HR* Rivaroxaban 10 MG TABLET PO SCH (17:15)
[2021-11-28 07:19] LABS: Basophils % 0.4 %; Hematocrit 30.3 % (35.3-44.9); Hemoglobin 8.6 g/dL (11.5-15.4); Immature Granulocytes % 0.8 % (0-4); Mean Corpuscular HGB Conc 28.4 g/dL (31.6-35.5); Mean Platelet Volume 8.8 fL (9.4-12.4); Monocytes % 5.9 %
[2021-11-28 07:20] LABS: Eosinophils # 0.4 K/mcL (0.0-0.6); Eosinophils % 4.3 %; Lymphocytes # 3.4 K/mcL (0.6-4.6); Lymphocytes % 37.4 %; Mean Corpuscular Hemoglobin 24.8 pg (28.0-33.3); Mean Corpuscular Volume 87.3 fL (83.0-100.0); Monocytes # 0.5 K/mcL (0.0-1.3); Neutrophils # 4.7 K/mcL (1.6-8.9); Platelet Count 383 K/mcL (140-400); Red Blood Count 3.47 M/mcL (3.82-4.97); Red Cell Distribution Width 17.1 % (11.5-14.5); Segmented Neutrophils % 51.2 %; White Blood Count 9.1 K/mcL (4.3-11.1)
[2021-11-28 07:45] LABS: Calcium 8.5 mg/dL (8.6-10.3); Potassium 3.7 mEq/L (3.5-5.1)
[2021-11-28] MEDS: Gabapentin 100 MG CAPSULE PO SCH ×2 (08:40→15:11)
[2021-11-28] MEDS: Aspirin 81 MG TAB.CHEW PO SCH (08:40)
[2021-11-28] MEDS: Isosorbide MONOnitrate (24 HR) 30 MG TAB.ER.24H PO SCH (08:42)
[2021-11-28] MEDS: methocarbamoL 500 MG TABLET PO SCH ×2 (08:42→15:11)
[2021-11-28] MEDS: 0.9 % Sodium Chloride 1,000 ML IVC SCH (08:59)
[2021-11-28] MEDS: Insulin LISPRO 300 UNITS/3 ML VIAL SUBQ SCH ×2 (09:06→12:10)
[2021-11-28 09:56] LABS: Anisocytosis 1+ (Not Present); Hypochromasia Present (Not Present); Platelet Estimate Normal (Normal)
[2021-11-28 12:04] VITALS: BP 118/69; PULSE 76; TEMP 98.2; O2SAT 92
[2021-11-28 12:28] LABS: Influenza A PCR Negative (Negative); Influenza B PCR Negative (Negative); Resp. Syncytial Virus PCR Negative (Negative)
[2021-11-28 13:53] LABS: SARS-CoV-2 by PCR (In House) Negative (Negative)
== END 2021-11-28 15:26 | DRG 637 ==
LOC: 3BNU → SUATTDRO 16:50
PROVIDERS: ADMIT Pharmacist; ATTEND Family Medicine

== ENCOUNTER 2022-01-02 10:40 | Observation (INO) ==
[2022-01-02 11:49] LABS: Basophils # 0.1 K/mcL (0.0-0.2); Basophils % 0.7 %; Eosinophils # 0.2 K/mcL (0.0-0.6); Eosinophils % 2.2 %; Hematocrit 38.7 % (35.3-44.9); Hemoglobin 11.3 g/dL (11.5-15.4); Immature Granulocytes % 0.2 % (0-4); Lymphocytes # 2.9 K/mcL (0.6-4.6); Mean Corpuscular HGB Conc 29.2 g/dL (31.6-35.5); Mean Corpuscular Hemoglobin 24.6 pg (28.0-33.3); Mean Corpuscular Volume 84.3 fL (83.0-100.0); Monocytes # 0.4 K/mcL (0.0-1.3); Monocytes % 4.3 %; Neutrophils # 5.3 K/mcL (1.6-8.9); Platelet Count 351 K/mcL (140-400); Red Blood Count 4.59 M/mcL (3.82-4.97); Red Cell Distribution Width 16.6 % (11.5-14.5); Segmented Neutrophils % 59.6 %; White Blood Count 8.8 K/mcL (4.3-11.1)
[2022-01-02 12:04] LABS: Albumin 3.9 g/dL (3.5-5.7); Albumin/Globulin Ratio 1.1 (1.1-2.2); Bilirubin,Total 0.3 mg/dL (0.3-1.0); Calcium 9.5 mg/dL (8.6-10.3); Globulin 3.5 g/dL (2.4-3.5); Potassium 3.8 mEq/L (3.5-5.1); Total Protein 7.4 g/dL (6.4-8.9)
[2022-01-02 12:55] LABS: Bacteria,Urine Few per hpf (None-Few); Bilirubin,Urine Negative (Negative); Blood,Urine Small (Negative); Clarity,Urine Turbid (Clear); Color,Urine Dark-Yellow (Yellow); Glucose,Urine (UA) Normal (Normal); Ketones,Urine Negative (Negative); Leukocyte Esterase,Urine Moderate (Negative); Nitrite,Urine Positive (Negative); Protein,Urine >=300 mg/dL (Neg-Trace); RBC,Urine 50-100 per hpf (0-3); Squamous Epithelial Cell,Urine Few per hpf (None-Few); Urobilinogen,Urine Normal (Normal); WBC,Urine 50-100 per hpf (0-3)
[2022-01-02] MEDS ORDERED: Ertapenem 1,000 MG in 0.9 % Sodium Chloride Mini Bag 100 ML IVPB SCH (13:00)
[2022-01-02] MEDS ORDERED: Naloxone 0.4 MG/ML INJ IVP PRN (13:32)
[2022-01-02] MEDS ORDERED: *HR* Dextrose 50 % in Water (Syg) 50 ML SYRINGE IVP PRN (13:39)
[2022-01-02] MEDS ORDERED: D5% in Water 1,000 ML IVC PRN (13:39)
[2022-01-02] MEDS ORDERED: Dextrose Gel 15 GM/37.5 ML TUBE PO PRN ×2 (13:39)
[2022-01-02] MEDS ORDERED: Ertapenem 1,000 MG in 0.9 % Sodium Chloride Mini Bag 100 ML IVPB ONE (13:45)
[2022-01-02] MEDS ORDERED: Gabapentin 100 MG CAPSULE PO PRN (14:59)
[2022-01-02] MEDS: Insulin LISPRO 300 UNITS/3 ML VIAL SUBQ SCH ×2 (18:45→19:38)
[2022-01-02] MEDS: Apixaban 5 MG TABLET PO SCH (21:04)
[2022-01-02] MEDS: rOPINIRole 1 MG TABLET PO SCH (22:47)
[2022-01-03 05:34] LABS: Basophils % 0.4 %; Eosinophils # 0.3 K/mcL (0.0-0.6); Eosinophils % 3.3 %; Hematocrit 34.5 % (35.3-44.9); Immature Granulocytes % 0.3 % (0-4); Lymphocytes # 3.2 K/mcL (0.6-4.6); Lymphocytes % 41.4 %; Mean Corpuscular Hemoglobin 24.8 pg (28.0-33.3); Mean Corpuscular Volume 85.6 fL (83.0-100.0); Mean Platelet Volume 8.7 fL (9.4-12.4); Monocytes # 0.5 K/mcL (0.0-1.3); Monocytes % 6.4 %; Neutrophils # 3.7 K/mcL (1.6-8.9); Platelet Count 300 K/mcL (140-400); Red Blood Count 4.03 M/mcL (3.82-4.97); Red Cell Distribution Width 16.7 % (11.5-14.5); Segmented Neutrophils % 48.2 %; White Blood Count 7.7 K/mcL (4.3-11.1)
[2022-01-03 05:45] LABS: Calcium 9.1 mg/dL (8.6-10.3); Magnesium 1.7 mg/dL (1.6-2.6)
[2022-01-03] MEDS: Insulin LISPRO 300 UNITS/3 ML VIAL SUBQ SCH ×4 (07:37→20:43)
[2022-01-03] MEDS: Apixaban 5 MG TABLET PO SCH ×2 (08:54→20:53)
[2022-01-03] MEDS: amLODIPine 5 MG TABLET PO SCH (08:54)
[2022-01-03] MEDS: Aspirin 81 MG TAB.CHEW PO SCH (08:54)
[2022-01-03] MEDS: Isosorbide MONOnitrate (24 HR) 30 MG TAB.ER.24H PO SCH (08:54)
[2022-01-03] MEDS ORDERED: BIOTIN 2500 MCG PO SCH (09:00)
[2022-01-03] MEDS: Ertapenem 1,000 MG in 0.9 % Sodium Chloride Mini Bag 100 ML IVPB SCH (13:29)
[2022-01-03] MEDS: rOPINIRole 1 MG TABLET PO SCH (20:54)
[2022-01-04] MEDS: Insulin LISPRO 300 UNITS/3 ML VIAL SUBQ SCH ×4 (08:15→21:11)
[2022-01-04] MEDS: Isosorbide MONOnitrate (24 HR) 30 MG TAB.ER.24H PO SCH (08:20)
[2022-01-04] MEDS: amLODIPine 5 MG TABLET PO SCH (08:20)
[2022-01-04] MEDS: Aspirin 81 MG TAB.CHEW PO SCH (08:20)
[2022-01-04] MEDS: Apixaban 5 MG TABLET PO SCH ×2 (08:20→20:40)
[2022-01-04] MEDS: Ertapenem 1,000 MG in 0.9 % Sodium Chloride Mini Bag 100 ML IVPB SCH (15:13)
[2022-01-04] MEDS: rOPINIRole 1 MG TABLET PO SCH (20:40)
[2022-01-05] MEDS ORDERED: EPINEPHrine 1 MG/ML VIAL IV PRN (07:30)
[2022-01-05] MEDS ORDERED: Amoxicillin Susp 250 MG/5 ML UDC PO ONE ×2 (07:30)
[2022-01-05] MEDS ORDERED: Famotidine 20 MG/2 ML VIAL IVP PRN (07:30)
[2022-01-05] MEDS ORDERED: Penicillin test 1000 units/0.1 ml ID ONE (07:30)
[2022-01-05] MEDS ORDERED: methylPREDNISolone 125 MG/2 ML VIAL IVP PRN (07:30)
[2022-01-05] MEDS ORDERED: EPINEPHrine 1 MG/ML VIAL IM PRN (07:30)
[2022-01-05] MEDS ORDERED: 0.9 % Sodium Chloride 10 ML PF VIAL TP ONE (07:30)
[2022-01-05] MEDS ORDERED: Penicillin test 1000 units/0.1 ml TP ONE (07:30)
[2022-01-05] MEDS: Insulin LISPRO 300 UNITS/3 ML VIAL SUBQ SCH ×4 (07:57→19:56)
[2022-01-05] MEDS: Apixaban 5 MG TABLET PO SCH ×2 (08:04→19:56)
[2022-01-05] MEDS: Aspirin 81 MG TAB.CHEW PO SCH (08:04)
[2022-01-05] MEDS: amLODIPine 5 MG TABLET PO SCH (08:04)
[2022-01-05] MEDS: Isosorbide MONOnitrate (24 HR) 30 MG TAB.ER.24H PO SCH (08:05)
[2022-01-05] MEDS: Ondansetron 4 MG/2 ML VIAL IVP PRN (08:13)
[2022-01-05] MEDS: rOPINIRole 1 MG TABLET PO SCH (19:55)
[2022-01-06] MEDS: Ondansetron 4 MG/2 ML VIAL IVP PRN (06:49)
[2022-01-06] MEDS: Insulin LISPRO 300 UNITS/3 ML VIAL SUBQ SCH ×2 (08:50→12:06)
[2022-01-06] MEDS: Apixaban 5 MG TABLET PO SCH (09:43)
[2022-01-06] MEDS: amLODIPine 5 MG TABLET PO SCH (09:43)
[2022-01-06] MEDS: Aspirin 81 MG TAB.CHEW PO SCH (09:43)
[2022-01-06] MEDS: Isosorbide MONOnitrate (24 HR) 30 MG TAB.ER.24H PO SCH (09:43)
[2022-01-06 10:14] VITALS: BP 119/67; PULSE 80; TEMP 98.2; O2SAT 91
== END 2022-01-06 15:47 | disposition home or self-care (01) | DRG 698 ==
LOC: EMEROOARM 10:40 → 3BNU 10:40 → SUATTDRO 16:50 → 3BNU 17:48 → SUATTDRO 01-05 07:57
PROVIDERS: ADMIT Internal Medicine; ATTEND Registered Nurse